=== PATIENT | male | born 1950 | race Two or more races ===

== ENCOUNTER 2018-12-16 06:46 | Day surgery (SDC) | payer OTHER ==
[~2018-12-16] VITALS: Ht 172.7 cm; Wt 77.6 kg
[~2018-12-16 06:46] MED LIST: ALPR0.254 PO; ASPI-404 PO; CARV25TA PO; OMEP20TA PO
[2018-12-16] MEDS ORDERED: IODIXANOL 320MG/ML 100ML BTL IV ONE (07:32)
[2018-12-16] MEDS ORDERED: LIDOCAINE 2%HCL (LOCAL ANESTH.) INJ 20ML MDV ONE (07:32)
[2018-12-16] MEDS ORDERED: OMEG100078 PO (07:55)
[2018-12-16] MEDS ORDERED: [UNRECOGNIZED DRUG - CODE] PO (07:55)
[2018-12-16] MEDS ORDERED: SPIR25TA88 PO (07:56)
[2018-12-16] MEDS ORDERED: FURO1TAB33 PO (07:56)
[2018-12-16] MEDS ORDERED: diphenhdrAMINE HCL 50 MG/1 ML VL ONE (08:02)
[2018-12-16] MEDS ORDERED: ANGIOMAX 250 MG VIAL IV ONE (08:02)
[2018-12-16] MEDS ORDERED: fentaNYL CITRATE 100 MCG/2 ML VL ONE (08:02)
[2018-12-16] MEDS ORDERED: methylPREDNISolone SOD SUCC 125 MG/2 ML VL ONE (08:02)
[2018-12-16] MEDS ORDERED: SODIUM CHL 0.9% 0 ML ONE (08:03)
[2018-12-16] MEDS ORDERED: FAMOTIDINE (10MG/ML) 2ML VL IV ONE (08:03)
[2018-12-16] MEDS ORDERED: MIDAZOLAM HCL 1MG/1ML-2 ML VIAL ONE (08:03)
[2018-12-16] MEDS ORDERED: VERAPAMIL 2.5MG/ML INJ 2ML VIAL IV ONE (08:04)
[2018-12-16] MEDS ORDERED: HEPARIN SODIUM (PORCINE) 5000 UNITS/ML 1ML VIAL ONE (08:30)
[2018-12-16] MEDS ORDERED: SODIUM CHL 0.9% 250 ML IV ONE (09:00)
[2018-12-16] MEDS ORDERED: HYDROcodone-ACET 5/325MG TAB PO PRN (09:00)
[2018-12-16] MEDS ORDERED: HYDROcodone-ACET 5/325MG TAB ONE (09:06)
== END 2018-12-16 11:00 | disposition home or self-care (01) ==
LOC: CATH 06:46
PROVIDERS: ATTEND Internal Medicine
DX: I25.10 Atherosclerotic heart disease of native coronary artery without angina pectoris (principal); I10 Essential (primary) hypertension; I11.0 Hypertensive heart disease with heart failure; I50.9 Heart failure, unspecified; E78.00 Pure hypercholesterolemia, unspecified; Z88.8 Allergy status to other drugs, medicaments and biological substances; Z87.891 Personal history of nicotine dependence; Z79.82 Long term (current) use of aspirin; Z79.899 Other long term (current) drug therapy; Z98.890 Other specified postprocedural states; Z91.041 Radiographic dye allergy status; Z91.013 Allergy to seafood
CPT/HCPCS: 93458; C1769; C1894; J1200; J1644; J2250; J2930; J3010; J3490; J7030; Q9967; 99152